=== PATIENT | female | born 1980 | race Caucasian/White ===

== ENCOUNTER 2016-05-08 16:00 | Emergency (ER) | payer MEDICAID ==
[2016-05-08 16:27] VITALS: BP 135/97
--- NOTE | 2016-05-08 17:07 | UC ---
Back Pain HPI - HPI Summary HPI Summary: BACK PAIN X 5 DAYS HX OF CHRONIC BACK PAIN , ON AN OFF FOR THE THE PAST 13 YEARS PAIN IS ON HER LEFT LOWER BACK , RADIATING TO HER LEFT LEG , LASTING FOR ABOUT 10 DAYS + NUMBNESS AND TINGLING OF LEFT LEG NO WEAKNESS, NO URINARY SX, NO FEVER OR CHILLS - History of Current Complaint Chief Complaint: UCBackPain Stated Complaint: BACK PAIN Time Seen by Provider: 05/08/16 16:34 Hx Obtained From: Patient Hx Last Menstrual Period: 04/04/16 Onset/Duration: Gradual Onset, Lasting Days - 5, Still Present Timing: Intermittent, Lasting Days - 5 Severity Initially: Moderate Severity Currently: Severe Back Pain: Is Discrete @ - LEFT LOWER BACK, Radiates To - LEFT LEG Character: Aching, Throbbing, Spasmodic Aggravating: Movement, Lifting, Bending, Walking, Cough Alleviating: Nothing Associated Signs And Symptoms: Positive: Numbness, Tingling. Negative: Swelling , Redness, Bruising, Fever, Weakness, Abdominal Pain, Flank Pain, Bladder Incontinence, Bowel Incontinence, Weight Loss, Pain with Weight Bearing - Allergies/Home Medications Allergies/Adverse Reactions: Allergies Allergy/AdvReac Type Severity Reaction Status Date / Time Penicillins Allergy Anaphylatic Verified 05/08/16 16:27 Shock Home Medications: Home Medications Acetaminophen [Acetaminophen ER] 500 mg PO DAILY 05/08/16 [History Confirmed ] PMH/Surg Hx/FS Hx/Imm Hx - Additional Past Medical History Additional PMH: PMHX : CHRONIC BACK PAIN - Surgical History Surgical History: Yes Surgery Procedure, Year, and Place: c sections 2 - Family History Known Family History: Negative: Diabetes - Social History Alcohol Use: Occasionally Substance Use Type: None Smoking Status (MU): Heavy Every Day Tobacco Smoker Review of Systems Constitutional: Negative Skin: Negative Eyes: Negative ENT: Negative Respiratory: Negative Cardiovascular: Negative Gastrointestinal: Negative Musculoskeletal: Other: - BACK PAIN All Other Systems Reviewed And Are Negative: Yes Physical Exam Triage Information Reviewed: Yes Appearance: Well-Appearing, Well-Nourished, Pain Distress Vital Signs: Initial Vital Signs Temp 98 F 05/08/16 16:21 Pulse 78 05/08/16 16:21 Resp 16 05/08/16 16:21 BP 135/97 05/08/16 16:21 Pulse Ox 100 05/08/16 16:21 Vital Signs Reviewed: Yes Eye Exam: Normal Eyes: Positive: Conjunctiva Clear ENT: Positive: Normal ENT inspection, Hearing grossly normal, Pharynx normal Neck exam: Normal Neck: Positive: Supple, Nontender, No Lymphadenopathy Respiratory Exam: Normal Respiratory: Positive: Chest non-tender, Lungs clear, Normal breath sounds Cardiovascular: Positive: RRR, No Murmur, Pulses Normal Abdominal Exam: Normal Abdomen Description: Positive: Nontender, Soft. Negative: CVA Tenderness (R), CVA Tenderness (L) Bowel Sounds: Positive: Present Musculoskeletal: Positive: Strength Intact, Other: - LOWER BACK : NO SWELLING, NO ERYTHEMA, + TENDERNESS LEFT LOWER BACK PAIN WITH LEFT HIP FLEXION DTR: + 2 B /L LOWER EXT. Diagnostics - Laboratory Diagnostic Studies Completed/Ordered: IMPRESSION: LEVOSCOLIOSIS. GRADE 1-2 ANTEROLISTHESIS L5 ON S1. THIS MAY BE RELATED TO AN. L5 SPONDYLOLYSIS BUT THIS CANNOT BE CONFIRMED ON TODAY'S TWO VIEW EXAMINATION. Back Pain Course/Dx - Differential Dx/Diagnosis Provider Diagnoses: SCOLIOSEIS. LOWER BACK PAIN Discharge - Discharge Plan Condition: Stable Disposition: HOME Prescriptions: Cyclobenzaprine TAB* [Flexeril TAB*] 10 mg PO BID #30 tab Naproxen [Naproxen 500 MG TABS] 500 mg PO BID #30 tab Patient Education Materials: Low Back Strain (ED), Lumbar Radiculopathy (ED) Referrals: MARYLIN Garza [Primary Care Provider] - Sandra Corona MD [Medical Doctor] - 7 Days Additional Instructions: XRAY REPORT : IMPRESSION: LEVOSCOLIOSIS. GRADE 1-2 ANTEROLISTHESIS L5 ON S1. THIS MAY BE RELATED TO AN L5 SPONDYLOLYSIS BUT THIS CANNOT BE CONFIRMED ON TODAY'S TWO VIEW EXAMINATION. WOULD MAKE A REFERRAL TO [facility] FOR EVAL
--- NOTE | 2016-05-08 17:14 | RAD ---
INDICATION: Back pain COMPARISON: None TECHNIQUE: Routine 2 view imaging of the thoracolumbar spine was performed FINDINGS: Bones: There are no acute bony findings. There arthritic changes with facet arthropathy at the lower 2 lumbar levels. Alignment: There is a moderate levoscoliosis with the apex of curvature at L1. There is a grade 1-2 anterolisthesis of L5 on S1. Disc spaces: The disc spaces are well-maintained Soft tissues: There are no soft tissue abnormalities. IMPRESSION: LEVOSCOLIOSIS. GRADE 1-2 ANTEROLISTHESIS L5 ON S1. THIS MAY BE RELATED TO AN L5 SPONDYLOLYSIS BUT THIS CANNOT BE CONFIRMED ON TODAY'S TWO VIEW EXAMINATION.
== END 2016-05-08 17:32 | disposition home or self-care (01) ==
LOC: UCCORT 16:00
DX: M41.9 Scoliosis, unspecified (principal); F17.210 Nicotine dependence, cigarettes, uncomplicated; Z88.0 Allergy status to penicillin
CPT/HCPCS: 72080; 99202; G0463

== ENCOUNTER 2016-12-17 14:59 | Emergency (ER) | payer MEDICAID ==
--- NOTE | 2016-12-17 15:41 | UC ---
Knee Pain HPI - HPI Summary HPI Summary: FELL AND SCRAPED BOTH HER KNEES 2 WEEKS AGO. THEY WERE HEALING WELL. NO REDNESS OR PAIN UNTIL LAST NIGHT WHEN HER LEFT KNEE BECAME RED, HOT, SWOLLEN AND PAINFUL. SHE DOES NOT HAVE FEVER. PAIN WHEN WEIGHT BEARING. - History of Current Complaint Chief Complaint: UCLowerExtremity Stated Complaint: LEFT KNEE PAIN Time Seen by Provider: 12/17/16 15:31 Hx Obtained From: Patient Hx Last Menstrual Period: 11/17/16 Onset/Duration: Sudden Onset, Lasting Hours, Still Present Severity Initially: Moderate Severity Currently: Moderate Pain Intensity: 10 Pain Scale Used: 0-10 Numeric Character: Aching Aggravating Factor(s): Movement, Weight Bearing Alleviating Factor(s): Rest Associated Signs And Symptoms: Positive: Swelling, Redness. Negative: Bruising , Fever, Weakness, Numbness, Tingling Able to Bear Weight: Yes - Allergies/Home Medications Allergies/Adverse Reactions: Allergies Allergy/AdvReac Type Severity Reaction Status Date / Time Penicillins Allergy Anaphylatic Verified 05/08/16 16:27 Shock PMH/Surg Hx/FS Hx/Imm Hx Previously Healthy: Yes - Surgical History Surgical History: Yes Surgery Procedure, Year, and Place: c sections 2 - Family History Known Family History: Negative: Diabetes - Social History Alcohol Use: Occasionally Substance Use Type: None Smoking Status (MU): Heavy Every Day Tobacco Smoker Review of Systems Constitutional: Negative Skin: Other - ERYTHEMA Respiratory: Negative Cardiovascular: Negative Gastrointestinal: Negative Musculoskeletal: Arthralgia, Decreased ROM, Edema All Other Systems Reviewed And Are Negative: Yes Physical Exam Triage Information Reviewed: Yes Appearance: Well-Appearing, No Pain Distress, Well-Nourished Vital Signs: Initial Vital Signs Temp 98.5 F 12/17/16 15:09 Pulse 70 12/17/16 15:09 Resp 16 12/17/16 15:09 BP 123/84 12/17/16 15:09 Pulse Ox 100 12/17/16 15:09 Vital Signs Reviewed: Yes Eyes: Positive: Conjunctiva Clear ENT: Positive: Hearing grossly normal Neck: Positive: Supple Respiratory: Positive: No respiratory distress, No accessory muscle use Cardiovascular: Positive: Pulses Normal Abdomen Description: Positive: Soft Musculoskeletal: Positive: ROM Limited @ - LEFT KNEE, Edema @ - LEFT KNEE, Other : - TTP OVER LATERAL JOINT LINE AND DIFFUSELY OVER LEFT KNEE AND WITH VARUS AND VALGUS STRESS TESTING. Neurological: Positive: Alert Psychological: Positive: Age Appropriate Behavior Skin: Positive: Other - LEFT KNEE ERYTHEMA WITH CENTRAL HEALING KNEE ABRASION Re-Evaluation - Re-Evaluation First Eval Re-Evaluation Time: 17:15 - VITALS STABLE ABD FEELING WELL AFTER 1G IM ROCEPHIN. NO EVIDENCE OF ALLERGIC REACTION Change: Unchanged Knee Pain Course/Dx - Course Course Of Treatment: DISCUSSED NEED FOR ANTIBIOTIC COVERAGE UNTIL SEEN BY ORTHO TOMORROW. PT REPORTS "ANAPHYLAXIS" TO PCN BUT DETAILS NOT CLEAR. DOES NOT RECALL HAVING CEPHALOSPORIN IN THE PAST. PT IS OKAY WITH IM ROCEPHIN WITH CLOSE MONITORING. NO REACTION NOTED AFTER INJECTION. - Differential Dx/Diagnosis Differential Diagnosis/HQI/PQRI: Infection, Other - SEPTIC JOINT Provider Diagnoses: LEFT KNEE ARTHRALGIA/CELLULITIS Discharge - Discharge Plan Condition: Stable Disposition: HOME Prescriptions: Ibuprofen TAB* [Motrin TAB* 600 MG] 1 tab PO Q6H PRN #30 tab PRN Reason: Pain Patient Education Materials: Swollen Knee Joint (ED), Arthralgia (ED) Forms: *Work Release Referrals: Isaiah Reynolds MD [Medical Doctor] - 1 Day (CALL TOMORROW AT 8AM OR EARLIER TO SCHEDULE AN APPT TO BE SEEN AT THAT TIME. WE SPOKE TO THEIR OFFICE TODAY AND THEY ARE AWARE OF YOUR CASE.) MARYLIN Garza [Primary Care Provider] - If Needed Additional Instructions: YOU RECEIVED AN INJECTION OF ROCEPHIN 1G TODAY. I AM CONCERNED ABOUT POSSIBLE SEPTIC JOINT AND WOULD LIKE YOU TO BE SEEN BY ORTHO FIRST THING TOMORROW MORNING. CALL DR. REYNOLDS'S OFFICE FIRST THING TOMORROW. WE CALLED THEM TODAY AND THEY ARE AWARE OF YOUR CASE. GO TO THE ER WITHOUT FAIL OVER NIGHT IF YOU DEVELOP FEVER. WORSENING PAIN OR ANY OTHER CONCERNING SYMPTOMS.
--- NOTE | 2016-12-17 16:11 | RAD ---
Indication: Knee pain and swelling. 4 views of left knee demonstrates no fracture. There is soft tissue swelling superficial to the patella. No joint effusion is noted. IMPRESSION: Soft tissue swelling superficial to the patella without fracture.
[2016-12-17] MEDS ORDERED: cefTRIAXone VIAL(*) 1,000 MG VIAL IM ONE (16:27)
[2016-12-17 17:18] VITALS: BP 150/66
== END 2016-12-17 17:18 | disposition home or self-care (01) ==
LOC: UCCORT 14:59
DX: M25.562 Pain in left knee (principal); L03.116 Cellulitis of left lower limb; Z88.0 Allergy status to penicillin; F17.210 Nicotine dependence, cigarettes, uncomplicated
CPT/HCPCS: 96372; 99212; G0463; J0696

== ENCOUNTER 2023-02-16 07:20 | Observation (INO) ==
[~2023-02-16 07:20] MED LIST: Buffered Lidocaine 1% SYRIN 1 ml INTRADERM ONE; HYDROcodone/ACETAMIN 5/325 mg TAB PO PRN; Lidocaine 2% PF 5 ML VIAL ONE; Metoclopramide 5 MG/ML VIAL (10 mg) IV PRN; Midazolam 2 mg/2 ml VIAL 1 mg/ml 2 ml VIAL (2 mg) ONE; Naloxone 0.4 mg VIAL 0.4 mg/ml 1 ml VIAL IV PRN; Ondansetron 4 mg VIAL 2 MG/ML 2 ml VIAL IV PRN; Propofol 10 MG/ML 20 ML BTL ONE; Rocuronium 50 mg VIAL 10 mg/ml 5 ml VIAL (50 mg) ONE; fentaNYL 100 mcg/2 ml 50 MCG/ML VIAL ONE
[2023-02-16] MEDS ORDERED: Chlorhexidine MOUTHWASH 0.12% 15 ML UDC ONE (07:40)
[2023-02-16] MEDS ORDERED: ceFAZolin 2 GM PREMIX 0 GM/0 ML BAG ONE (07:40)
[2023-02-16] MEDS: Lactated Ringers 1000 ml BAG 1,000 ML IV SCH ×2 (08:21→16:41)
[2023-02-16 08:43] LABS: Rapid COVID-19 Molecular Undetected (Undetected)
[2023-02-16] MEDS ORDERED: Clindamycin 900 MG/50 **NS BAG 900 MG/50 ML BAG ONE (09:40)
[2023-02-16] MEDS ORDERED: Gelfoam Sponge SIZE 100 SPONGE ONE (10:04)
[2023-02-16] MEDS ORDERED: Thrombin 5,000 UNITS 1 APPLIC KIT - topical use - TOPICAL ONE (10:04)
[2023-02-16] MEDS ORDERED: ceFAZolin VIAL VIAL ONE (10:04)
[2023-02-16] MEDS ORDERED: Lidocaine 1% w EPI 1:100,000 MDV 20 ML VIAL ONE (10:04)
[2023-02-16] MEDS ORDERED: HYDROmorphone 0.5 MG/0.5 ML SYRINGE ONE ×2 (11:00→12:35)
[2023-02-16] MEDS ORDERED: Rocuronium 50 mg VIAL 10 mg/ml 5 ml VIAL (50 mg) ONE (12:04)
[2023-02-16] MEDS ORDERED: Dexamethasone IV 4 MG/ML VIAL 1 ml VIAL ONE (12:04)
[2023-02-16] MEDS ORDERED: Ondansetron 4 mg VIAL 2 MG/ML 2 ml VIAL ONE (12:04)
[2023-02-16] MEDS ORDERED: Propofol 10 MG/ML 20 ML BTL ONE (13:16)
[2023-02-16] MEDS ORDERED: Senna TAB 8.6 mg TAB PO PRN (13:34)
[2023-02-16] MEDS ORDERED: Ondansetron 4 mg VIAL 2 MG/ML 2 ml VIAL IV PRN (13:34)
[2023-02-16] MEDS ORDERED: Calcium Carb (TUMS) 500 mg CHEW TAB PO PRN (13:34)
[2023-02-16] MEDS ORDERED: Morphine 2 MG/ML SYRINGE IV PRN (13:34)
[2023-02-16] MEDS ORDERED: fentaNYL 100 mcg/2 ml 50 MCG/ML VIAL ONE (13:47)
[2023-02-16] MEDS: fentaNYL 100 mcg/2 ml 50 MCG/ML VIAL IV PRN ×4 (13:48→14:12)
[2023-02-16] MEDS ORDERED: HYDROcodone/ACETAMIN 5/325 mg TAB ONE (14:00)
[2023-02-16] MEDS ORDERED: Lactated Ringers 1000 ml BAG 1,000 ML IV SCH (14:00)
[2023-02-16] MEDS: HYDROcodone/ACETAMIN 5/325 mg TAB PO PRN ×2 (17:35→21:41)
[2023-02-17] MEDS: HYDROcodone/ACETAMIN 5/325 mg TAB PO PRN ×5 (02:25→20:48)
[2023-02-18] MEDS: HYDROcodone/ACETAMIN 5/325 mg TAB PO PRN ×3 (01:35→11:18)
[2023-02-18 10:34] VITALS: BP 136/84
== END 2023-02-18 12:06 | disposition home or self-care (01) ==
LOC: SSU 07:20 → OR 07:20
PROVIDERS: ADMIT Neurological Surgery; ATTEND Neurological Surgery
PROC: O.NEPLF (2023-02-16 09:45)